=== PATIENT | female | born 1990 | race Two or more races ===

== ENCOUNTER 2019-07-03 02:42 | Emergency (ER) | payer OTHER ==
[~2019-07-03] VITALS: Ht 157.5 cm; Wt 65.3 kg
[2019-07-03 02:50] VITALS: Ht 157.5 cm; Wt 65.3 kg
[2019-07-03 05:42] VITALS: BP 112/71
== END 2019-07-03 05:42 | disposition home or self-care (01) ==
LOC: ED 02:42
DX: N12 Tubulo-interstitial nephritis, not specified as acute or chronic (principal); R50.9 Fever, unspecified

== ENCOUNTER 2019-07-16 20:05 | Emergency (ER) | payer OTHER ==
[~2019-07-16] VITALS: Ht 157.5 cm; Wt 71.7 kg
[2019-07-16 20:09] VITALS: Ht 157.5 cm; Wt 71.7 kg
[2019-07-16 20:51] VITALS: BP 122/70
== END 2019-07-16 20:51 | disposition home or self-care (01) ==
LOC: ED 20:05
DX: R10.13 Epigastric pain (principal)

== ENCOUNTER 2019-08-01 17:55 | Emergency (ER) | payer OTHER ==
[~2019-08-01] VITALS: Ht 157.5 cm; Wt 69.4 kg
[2019-08-01 18:05] VITALS: Ht 157.5 cm; Wt 69.4 kg
== END 2019-08-01 20:15 | disposition home or self-care (01) ==
LOC: ED 17:55
DX: S93.402A Sprain of unspecified ligament of left ankle, initial encounter (principal); X50.1XXA Overexertion from prolonged static or awkward postures, initial encounter; Y93.89 Activity, other specified; Y92.89 Other specified places as the place of occurrence of the external cause; Y99.8 Other external cause status